=== PATIENT | male | born 2000 | race Caucasian/White ===

== ENCOUNTER 2020-08-11 12:20 | Emergency (ER) | payer OTHER ==
[2020-08-11 12:36] VITALS: BP 122/74; PULSE 97; TEMP 98.7; BMI 23.4
[2020-08-11] MEDS ORDERED: DIPHTH,PERTUSS(ACELL),TET 0.5 ML DISP.SYRIN IM ONE ×2 (12:58→13:04)
== END 2020-08-11 13:14 | disposition home or self-care (01) ==
LOC: FER 12:20
PROC: 3E0234Z Introduction of Serum, Toxoid and Vaccine into Muscle, Percutaneous Approach (ICD-10-PCS; principal; 2020-08-11)
DX: S80.211A Abrasion, right knee, initial encounter (principal); S80.212A Abrasion, left knee, initial encounter; Y04.8XXA Assault by other bodily force, initial encounter
CPT/HCPCS: 90471; 90715; 99284-25

== ENCOUNTER 2023-04-22 15:34 | Emergency (ER) | payer BC, OTHER ==
[2023-04-22 15:49] VITALS: BP 144/93; PULSE 98; RESP 18; TEMP 98; BMI 25.1
== END 2023-04-22 16:01 | disposition home or self-care (01) ==
LOC: FER 15:34
DX: S80.12XA Contusion of left lower leg, initial encounter (principal); R22.42 Localized swelling, mass and lump, left lower limb; W19.XXXA Unspecified fall, initial encounter; W22.8XXA Striking against or struck by other objects, initial encounter
CPT/HCPCS: 99282-25